=== PATIENT | female | born 1965 | race Caucasian/White ===

== ENCOUNTER 2020-05-20 13:40 | Inpatient (IN) | payer OTHER ==
[~2020-05-20] VITALS: Ht 160 cm; Wt 65.8 kg
[2020-05-20] MEDS ORDERED: ASA81BEC PO (14:14)
[2020-05-20] MEDS ORDERED: LIPITOR40 MG PO (14:15)
[2020-05-20] MEDS ORDERED: LANTUS SUBQ (14:18)
[2020-05-20] MEDS ORDERED: NICOTINE TRANSD21 M1 TOP (14:20)
[2020-05-20] MEDS ORDERED: NORVASC 2.5 MG2.5 M1 PO (14:21)
[2020-05-20] MEDS ORDERED: LISINOPRIL-HCT1 EAC1 PO (14:22)
[2020-05-20] MEDS ORDERED: GLUCOPHAGE XR500 M1 PO (14:24)
--- NOTE | 2020-05-20 18:21 | NUR ---
54YR OLD FEMALE ADMITTED S/P LEFT MCA CVA, TRANSPORTED HERE BY HER FROM [facility] [place]. PT A/O WITH MILD APHASIA. ADMITTING PROCESS COMPLETED. PT EDUCATED ON FALL PREVENTION, CALL LIGHT, BED CONTROLS AND POC. PT DOESN'T HAVE ANY RESIDUAL WEAKNESS AND TRANSFERS WITH STAND BY ASSIST. PT IS ON REGULAR FOOD AND THIN LIQUIDS. FALL PRECAUTIONS AND HOURLY ROUNDING IMPLEMENTED.
[2020-05-20 20:22] VITALS: BP 141/54
[2020-05-21 04:46] LABS: ABSOLUTE BASOPHILS 0.1 thou/uL (0.0-0.2); ABSOLUTE EOSINOPHILS 0.2 thou/uL (0.0-0.7); ABSOLUTE LYMPHOCYTES 2.6 thou/uL (0.8-5.3); ABSOLUTE MONOCYTES 0.6 thou/uL (0.0-1.2); ABSOLUTE NEUTROPHILS 5.8 thou/uL (1.6-8.1); EOSINOPHILS 1.9 %; HEMOGLOBIN 13.8 gm/dL (12.0-15.0); LYMPHOCYTES 28.3 %; MCH 31.9 pg (26.0-34.0); MCHC 33.7 g/dL (28.0-37.0); MCV 94.5 fL (80.0-100.0); MONOCYTES 6.6 %; MPV 8.1 fl. (7.2-11.1); NUCLEATED RBCS 0 /100WBC; PLATELET COUNT* 236 thou/uL (150-400); POLYS 62.2 %; RBC 4.34 mil/uL (4.20-5.00); WBC 9.3 thou/uL (4.0-11.0)
[2020-05-21 05:19] LABS: CALCIUM 8.8 mg/dL (8.5-10.1); CREATININE 0.8 mg/dL (0.6-1.3)
--- NOTE | 2020-05-21 05:35 | NUR ---
ASSUMED CARES AT 1920. ALERT AND ORIENTED. PLEASANT. MILD APHASIA. DIFFICULTY WITH WORD FINDING AT TIMES. MIN ASSIST WITH GAIT BELT. UP TO BR. DENIED ANY PAIN. SLEPT WELL. CALL LIGHT IN REACH AND BED ALARM ON.
[2020-05-21 08:00] VITALS: BP 131/53
--- NOTE | 2020-05-21 13:15 | NUR ---
Nutrition: Pt admitted to rehab with CVA. CHO controlled diet ordered. Takes insulin. Wt: 145#. No albumin recorded, A1c 10.3%, BG 89-107. Low nutrition risk. I wanted to offer pt DM education, but she was soundly sleeping at visit. Left basic CHO counting info on her table with RD contact info. Will follow weekly on rehab. Low nutrition risk at this time.
--- NOTE | 2020-05-21 18:49 | NUR ---
AM ASSESSMENT AND VITAL SIGNS COMPLETED DOCUMENTED. PT HAD PT AND ST SERGALS TODAY AND WILL HAVE OT SAEED TOMMORROW. PT'S HIGHEST BLOOD GLUCOSE WAS 179 AND SHE STATES SHE WAS NOT ON INSULIN PRIOR THIS ADMISSION. PT CURRENTLY HAS AN ORDER FOR LANTUS HS AND IS WONDERING IF SHE STILL NEEDS IT. PT EDUCATED ON SMOKING CESSATION. FALL PRECAUTIONS AND HOURLY ROUNDING CONTINUE.
[2020-05-21 19:50] VITALS: BP 111/54
--- NOTE | 2020-05-21 23:47 | NUR ---
ASSUMED CARE AT 1930. PATIENT RESTING IN BED. TURNS SELF. S/P CVA, WITH LITTLE RESIDUAL NOTED. 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 DECLINED LANTUS INSULIN THIS EVENING. SHE DOES NOT TAKE INSULIN AT HOME, BUT USES 24 HOUR METFORMIN FOR MANAGEMENT. SHE WANTS TO SEE WHAT HER BLOOD SUGARS ARE TOMORROW MORNING WITHLOUT LANTUS. SHE REFUSED LANTUS LAST NIGHT ALSO. MEDICATED FOR PAIN WITH TYLENOL AT HS. SEE SEP. CALL LITE IN REACH, BED ALARM ON, HOURLY ROUNDS CONTINUE.
--- NOTE | 2020-05-22 05:18 | NUR ---
APPEARS SLEEPING THROUGH NIGHT. TURNS SELF. NO C/O PAIN. HOURLY ROUNDS CONTINUE. BED ALARM ON. CALL LITE IN REACH.
[2020-05-22 07:30] VITALS: BP 109/56
[2020-05-22 12:54] LABS: HEMATOCRIT 44.2 % (37.0-47.0); MCH 32.3 pg (26.0-34.0); MCV 94.9 fL (80.0-100.0); RBC 4.66 mil/uL (4.20-5.00); RDW-CV 13.2 % (10.5-14.5); WBC 8.9 thou/uL (4.0-11.0)
[2020-05-22 13:00] LABS: CALCIUM 9.3 mg/dL (8.5-10.1); CREATININE 0.8 mg/dL (0.6-1.3); POTASSIUM 4.2 mmol/L (3.5-5.1)
--- NOTE | 2020-05-22 18:01 | NUR ---
ASSUMMED CARE OF PT AT O730, PT ALERT AND ORIENTED, PT TRANSFERS WITH ASSIST OF 1, AND GB, TAKING FOOD AND FLUIDS WELL, DENIES PAIN, BM X 1 THIS SHIFT, AMBULATES TO TOILET, PARTICIPATED IN ALL THERAPIES, HOURLY ROUNDING COMPLETED, ASSESSMENT COMPLETE, WILL CONTINUE TO MONITOR.
[2020-05-22 20:13] VITALS: BP 99/52
--- NOTE | 2020-05-22 23:33 | NUR ---
ASSUMED CARE AT 1930. PATIENT TAKES PILLS WHOLE WITH WATER. UP WITH SBA, GAIT BELT. VOIDS PER TOILET AND DOES OWN CARES. BLOOD SUGAR 265 AT HS. PATIENT TOOK LANTUS ORDERED. SHE FURTHER STATES THAT AT THEY HAD HER WORKING WITH A LANTUS PEN, AND SHE WAS ABLE TO USE THAT. THIS NURSE SHOWED HER HOW THE SYRINGE WORKS, INCLUDING WHERE THE LINES WERE FOR THE UNITS OF INSULIN AND HOW TO ACTIVATE THE NEEDLE COVER WHEN DONE. PATIENT OBSERVED THIS NURSE DRAWING UP LANTUS, BUT DID NOT INJECT HERSELF WITH THE NEEDLE. SHE STATED THAT SHE THOUGHT HER AIC WAS "10" AND THINKS SHE DOES NEED MORE MEDICINES TO CONTROL HER DIABETES, INCLUDING LANTUS. SHE STATES SHE IS ALSO THINKING OF CHANGING HER DOCTOR TO A PLATE INSPECTOR. SHE VERBALIZED UNDERSTANDING OF ALL INFO GIVEN. HOURLY ROUNDS CONTINUE. BED ALARM ON. CALL LITE IN REACH
--- NOTE | 2020-05-23 05:30 | NUR ---
WENT TO BED AROUND MIDNIGHT. SLEPT UNTIL AROUND 0430, VOIDED AND RETURNED TO BED. NO C/O PAIN. HOURLY ROUNDS CONTINUE. BED ALARM ON. CALL LITE IN REACH.
[2020-05-23 08:19] VITALS: BP 117/55
[2020-05-23 20:03] VITALS: BP 113/55
--- NOTE | 2020-05-23 20:13 | NUR ---
cares provided from 0700 until 1900. pt has remained alert, oriented and cooperative. no c/o pain or distress. gait has been stable, steady and independent. hospitalist notied of ac dinner glucose value of 219. pt does not have any sliding scale ordered. new order obtained. 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
--- NOTE | 2020-05-24 00:50 | NUR ---
ASSUMED CARE AT 1930. PATIENT RESTING IN BED. TAKES PILLS WHOLE WITH WATER. UP WITH SBA, GAIT BELT, NO DEVICE. VOIDS PER TOILET, DOES OWN CARES. INSTRUCTED ON SHORT ACTING VERSUS LONG ACTING INSULIN (LISPRO VS LANTUS) AND HOW SLIDING SCALES WORK. PATIENT ABLE TO DRAW UP INSULIN IN BOTH SYRINGES WITH CUING AND ENCOURAGEMENT. PATIENT ABLE TO SEE MARKINGS ON SYRINGES USING HER GLASSES. PATIENT ABLE TO ADMINISTER INSULIN TO SELF WITH CUEING AND ENCOURAGEMENT. AFTERWARDS, PATIENT STATED THAT THE SYRINGES WEREN'T "ALL THAT BAD." HAD USED INSULIN PENS AT [facility] PRIOR TO ADMISSION TO REHAB. ATE CHOCOLATE PUDDING FOR HS SNACK. PATIENT STATED THAT SHE IF SHE NEEDED LANTUS INSULIN, SHE WOULD RATHER BE ON IT ALONE RATHER THAN BEING ON BOTH INSULIN AND METFORMIN. INSTRUCTED TO DISCUSS THIS WITH HER PROVIDERS, AND WE WILL CONTINUE TO ADJUST HER INSULIN PRIOR TO DISCHARGE. PATIENT VERBALIZED UNDERSTANDING OF ALL. HOURLY ROUNDS CONTINUE. BED ALARM ON. CALL LITE IN REACH.
--- NOTE | 2020-05-24 05:10 | NUR ---
APPEARED TO SLEEPING MOST OF THE NIGHT. NO C/O PAIN. HOURLY ROUNDS CONTINUE. BED ALARM ON. CALL LITE IN REACH.
[2020-05-24 08:00] VITALS: BP 98/48
--- NOTE | 2020-05-24 08:59 | NUR ---
INITIAL ASSESSMENT: PATIENT ADMITTED TO THE [facility] ON 05/20/20 WITH A DIAGNOSIS OF CVA. PT ALERT AND ORIENTED. PT INFORMS THAT SHE WAS ACTIVE, INDEPENDENT, AND ABLE TO DRIVE PRIOR TO ADMIT. PT RESIDES AT HOME WITH SPOUSE AND HE IS ABLE TO ASSIST HER IF NEEDED AT D/C. PT OWNS 0 DME. PT HAS 0 HX OF HH OR SNF. PT INFORMS THAT SHE WOULD LIKE TO DO OUTPATIENT THERAPY AT D/C IF NEEDED. CM ORIENTED PT TO THE REHAB UNIT AND PROCESSES, TEAM CONFRENCE MEETING, RESIDENTS RIGHTS INFO, AND TO THE ROLE OF CM. CM WILL REMAIN AVAILABLE TO ASSIST AND FOLLOW NEEDED.
[2020-05-24 13:34] VITALS: BP 110/52
[2020-05-24] MEDS ORDERED: NORVASC 2.5 MG2.5 M1 PO (13:38)
[2020-05-24] MEDS ORDERED: LANTUS SUBQ (13:38)
[2020-05-24] MEDS ORDERED: LISINOPRIL-HCT1 EAC1 PO (13:38)
[2020-05-24] MEDS ORDERED: GLUCOPHAGE XR500 M1 PO (13:38)
[2020-05-24] MEDS ORDERED: LIPITOR40 MG PO (13:38)
[2020-05-24] MEDS ORDERED: ASA81BEC PO (13:38)
[2020-05-24 14:20] VITALS: BP 110/52
--- NOTE | 2020-05-24 15:25 | NUR ---
PATIENT DISCHARGED TO HOME THIS AFTERNOON. UP THE SBA, GAIT BELT. NO IV. INSULIN GIVEN WITH MEALS ORDERED. PATIENT VERBALIZED UNDERSTANDING OF PAPERWORK AND SCRIPTS. PATIENT TAKEN OUT VIA WHEELCHAIR WITH ALL BELONGINGS.
== END 2020-05-24 15:34 | disposition home or self-care (01) | DRG 56 ==
LOC: M.REH 13:40
PROVIDERS: ADMIT Physical Medicine & Rehabilitation; ATTEND Physical Medicine & Rehabilitation
DX: I69.351 Hemiplegia and hemiparesis following cerebral infarction affecting right dominant side (principal); I63.9 Cerebral infarction, unspecified; I10 Essential (primary) hypertension; E78.5 Hyperlipidemia, unspecified; E11.65 Type 2 diabetes mellitus with hyperglycemia; F17.210 Nicotine dependence, cigarettes, uncomplicated; Z88.0 Allergy status to penicillin; Z91.040 Latex allergy status; Z72.89 Other problems related to lifestyle; Z79.4 Long term (current) use of insulin